=== PATIENT | male | born 1955 | race Two or more races ===

== ENCOUNTER 2021-10-06 15:18 | Emergency (ER) | payer OTHER ==
[~2021-10-06] VITALS: Ht 182.9 cm; Wt 81.6 kg
--- NOTE | 2021-10-06 15:30 | NUR ---
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 THE PATIENT IS ALERT AND ORIENTED X1. NOTED TO BE SLEEPY. IN ROOM AIR AND DENIES SOB. RESPIRATION REGULAR AND UNLABORED. ATTACHED TO THE MONITOR. WARM BLANKET PROVIDED FOR COMFORT. WILL CONTINUE TO MONITOR THE PATIENT.
--- NOTE | 2021-10-06 15:34 | NUR ---
COVID ANTIGEN SWAB DONE AND SENT TO THE LAB
--- NOTE | 2021-10-06 15:50 | NUR ---
URINE COLLECTED AND SENT TO THE LAB
[2021-10-06] MEDS ORDERED: FURO-145 PO (15:54)
[2021-10-06] MEDS ORDERED: LORA-259 PO (15:54)
[2021-10-06] MEDS ORDERED: QUET300T2 PO (15:54)
[2021-10-06] MEDS ORDERED: CHLO25TA2 PO (15:54)
[2021-10-06] MEDS ORDERED: LEVE500T9 PO (15:54)
[2021-10-06] MEDS ORDERED: SPIR25TA PO (15:54)
[2021-10-06 16:20] LABS: BILIRUBIN,URINE NEGATIVE (NEGATIVE); COLOR,URINE YELLOW (YELLOW); LEUKOCYTE ESTERASE ,URINE NEGATIVE (NEGATIVE); NITRITE, URINE NEGATIVE (NEGATIVE); PROTEIN,URINE NEGATIVE (NEGATIVE); UGLUCOSE NEGATIVE (NEGATIVE); UROBILINOGEN,URINE 0.2 EU/dL (0.2)
[2021-10-06 16:26] LABS: BASOPHILS % (AUTO) 0.4 % (0.0-2.0); EOSINOPHILS % (AUTO) 2.8 % (0.0-6.0); HEMATOCRIT 39 % (39-51); HEMOGLOBIN 12.7 g/dL (13.5-17.5); LYMPHOCYTES # (AUTO) 1.6 K/uL (0.8-4.8); LYMPHOCYTES % (AUTO) 30.8 % (20.0-44.0); MEAN CORPUSCULAR HGB CONC 33 g/dl (31.0-36.0); MEAN CORPUSCULAR VOLUME 89 fL (80-96); MONOCYTES # (AUTO) 0.8 K/uL (0.1-1.30); MONOCYTES % (AUTO) 15.8 % (2.0-12.0); NEUTROPHILS # (AUTO) 2.6 K/uL (1.8-8.9); NEUTROPHILS % (AUTO) 50.2 % (43.0-81.0); PLATELET COUNT (AUTO) 141 K/uL (150-450); RED BLOOD CELL COUNT(AUTO) 4.42 MIL/uL (4.5-6.0); WHITE BLOOD COUNT (AUTO) 5.1 K/uL (4.3-11.0)
[2021-10-06 16:28] LABS: CALCIUM, SERUM 9.1 mg/dL (8.5-10.1); CARBON DIOXIDE 33 mmol/L (21-32); CHLORIDE 100 mmol/L (98-107); CREATININE 1.3 mg/dL (0.6-1.3); GLUCOSE 94 mg/dL (74-106); POTASSIUM 3.2 mmol/L (3.5-5.1); SODIUM SERUM 138 mmol/L (136-145); UREA NITROGEN, BLOOD 21 mg/dL (7-18)
[2021-10-06 16:34] LABS: ALANINE AMINOTRANSFERASE 28 U/L (12-78); ALBUMIN 3.4 g/dL (3.4-5.0); ALCOHOL, BLOOD < 3 mg/dL (0-0); ALKALINE PHOSPHATASE 87 U/L (46-116); ASPARTATE AMINOTRANSFERASE 27 U/L (15-37); BILIRUBIN,DIRECT 0.1 mg/dL (0.0-0.2); BILIRUBIN,TOTAL 0.5 mg/dL (0.2-1.0); TOTAL PROTEIN, SERUM 8.1 g/dL (6.4-8.2)
[2021-10-06 16:36] LABS: ACETAMINOPHEN < 0 ug/ml (10-30)
[2021-10-06 16:38] LABS: BACTERIA,URINE None seen /HPF (None Seen); SQUAMOUS EPITHELIAL CELL,UR Few /HPF (None Seen)
[2021-10-06 16:51] LABS: LYMPHOCYTES % (MANUAL) 31 % (16-48); MONOCYTES % (MANUAL) 21 % (0-11.0); NEUTROPHILS % (MANUAL) 48 (42-76)
[2021-10-06] MEDS ORDERED: POTASSIUM CHLORIDE 20 MEQ TAB.PRT.SR PO ONE ×2 (17:00→17:47)
--- NOTE | 2021-10-06 17:25 | NUR ---
MOVE SHEET SUBMITTED
--- NOTE | 2021-10-06 17:29 | NUR ---
GOT BED 216-[id number]
--- NOTE | 2021-10-06 17:52 | NUR ---
THE PATIENT IS AWAKE, ALERT AND ORIENTED X2. DENIES PAIN. IN ROOM AIR AND DENIES SOB. RESPIRATION REGULAR AND UNLABORED. WILL CONTINUE TO MONITOR THE PATIENT.
--- NOTE | 2021-10-06 18:58 | NUR ---
[facility] CALLED ETA 15-20 MINS.
[2021-10-06] MEDS ORDERED: OLANZAPINE 10 MG VIAL IM ONE ×2 (19:51→20:00)
[2021-10-06] MEDS ORDERED: LORAZEPAM INJ 2 MG/ML VIAL ONE (19:52)
--- NOTE | 2021-10-06 19:54 | NUR ---
CALLED [facility] ETA 2020
[2021-10-06] MEDS ORDERED: LORAZEPAM INJ 2 MG/ML VIAL IM ONE (20:00)
--- NOTE | 2021-10-06 20:20 | NUR ---
REPORT GIVEN TO NURSE AT THE FACILITY. DID NOT GET A NAME.
--- NOTE | 2021-10-06 20:37 | NUR ---
Pt left on gurney with 2 emt on stable condition.
[2021-10-06 20:52] VITALS: BP 104/61
[2021-10-07] MEDS ORDERED: FUROSEMIDE 20 MG TABLET PO SCH (09:00)
[2021-10-07] MEDS ORDERED: SPIRONOLACTONE 25 MG TABLET PO SCH (09:00)
[2021-10-07] MEDS ORDERED: Medication Not On Formulary EA (Chlorthalidone 25 MG) PO SCH (09:00)
[2021-10-07] MEDS ORDERED: LEVETIRACETAM (250 MG) 250 MG TABLET PO SCH (09:00)
== END 2021-10-06 20:40 ==
LOC: ER 15:25
DX: R62.7 Adult failure to thrive (principal); E87.6 Hypokalemia; E86.0 Dehydration; D69.6 Thrombocytopenia, unspecified; D64.9 Anemia, unspecified; F31.9 Bipolar disorder, unspecified; Z20.822 Contact with and (suspected) exposure to COVID-19; Z53.8 Procedure and treatment not carried out for other reasons; F03.90 Unspecified dementia, unspecified severity, without behavioral disturbance, psychotic disturbance, mood disturbance, and anxiety; G40.909 Epilepsy, unspecified, not intractable, without status epilepticus; I10 Essential (primary) hypertension
CPT/HCPCS: 36415; 80048; 80076; 80143; 80307; 80320; 81001; 85007; 85025; 87426; 96372 ×2; 99284; C9803; J2060; J3490; G0480